=== PATIENT | male | born 1990 | race Caucasian/White ===

== ENCOUNTER 2016-11-01 20:00 | Emergency (ER) | payer SELFPAY ==
[2016-11-01 20:03] VITALS: BP 144/89; PULSE 108; RESP 16; TEMP 98.8; O2SAT 100
== END 2016-11-01 20:26 | disposition left against medical advice (07) ==
LOC: NED 20:00
DX: R23.9 Unspecified skin changes (principal); Z53.21 Procedure and treatment not carried out due to patient leaving prior to being seen by health care provider
CPT/HCPCS: 99281